=== PATIENT | male | born 1995 | race Caucasian/White ===

== ENCOUNTER 2020-01-19 16:49 | Emergency (ER) | payer OTHER ==
[2020-01-19] MEDS ORDERED: Lidocaine/EPINEPHrine/Tetracaine Soln 5 ML Each TOP ONE (17:30)
--- NOTE | 2020-01-19 17:57 | EDM.PDOC ---
ED HPI GENERAL MEDICAL PROBLEM - General Chief Complaint: Laceration Stated Complaint: LACERATION LT MIDDLE FINGER Time Seen by Provider: 01/19/20 17:10 Source of Information: Reports: Patient History Limitations: Reports: No Limitations - History of Present Illness INITIAL COMMENTS - FREE TEXT/NARRATIVE: Patient presented to the ED because of a left hand injury. A 10 lb piece of metal landed on his left 3rd/4th finger. He sustained a shallow 1 cm laceration on the 4th finger and 2 cm laceration on the 3rd finger. he is able to extend and flex his finger without any difficulty - Related Data Home Meds: Home Meds Rosuvastatin [Crestor] 5 mg PO DAILY 01/19/20 [History] Past Medical History Cardiovascular History: Reports: High Cholesterol - Past Surgical History GI Surgical History: Reports: Appendectomy Social & Family History - Tobacco Use Smoking Status *Q: Never Smoker - Recreational Drug Use Recreational Drug Use: No ED ROS GENERAL - Review of Systems Review Of Systems: See Below Constitutional: Reports: No Symptoms HEENT: Reports: No Symptoms Respiratory: Reports: No Symptoms Cardiovascular: Reports: No Symptoms Endocrine: Reports: No Symptoms GI/Abdominal: Reports: No Symptoms Musculoskeletal: Reports: No Symptoms Skin: Reports: Wound Neurological: Reports: No Symptoms Psychiatric: Reports: No Symptoms ED EXAM, SKIN/RASH Exam: See Below Exam Limited By: No Limitations General Appearance: Alert, No Apparent Distress Ears: Normal External Exam, Normal Canal, Hearing Grossly Normal Nose: Normal Inspection, Normal Mucosa, No Blood Throat/Mouth: Normal Inspection, Normal Lips, Normal Teeth Head: Atraumatic, Normocephalic Neck: Normal Inspection, Supple, Non-Tender, Full Range of Motion Respiratory/Chest: No Respiratory Distress, Lungs Clear, Normal Breath Sounds Cardiovascular: Normal Peripheral Pulses, Regular Rate, Rhythm, No Edema, No Gallop, No JVD, No Murmur GI/Abdominal: Normal Bowel Sounds, Soft, Non-Tender, No Organomegaly, No Distention Back Exam: Normal Inspection Extremities: Normal Inspection, Normal Range of Motion Neurological: Oriented, CN II-XII Intact Skin: Warm, Intact, Other (see laceration size and location) ED SKIN PROCEDURES - Laceration/Wound Repair Left Upper Digit - 3rd (Middle) Appearance: Clean Anesthetic Type: Topical Local Anesthesia - Lidocaine (Xylocaine): Other (LET) Closed with: Sutures Lac/Wound length In cm: 2 Suture Size: 4-0 Course - Vital Signs Text/Narrative:: UTD with immunization see procedure Last Recorded V/S: Last Vital Signs Temp 36.9 C 01/19/20 17:06 Pulse 76 01/19/20 17:06 Resp 18 01/19/20 17:06 BP 146/82 H 01/19/20 17:06 Pulse Ox 100 01/19/20 17:06 - Orders/Labs/Meds Orders: Active Orders 24 hr Category Date Time Status Fingers Fourth Digit Lt F3 [CR] Stat Exams 01/19/20 17:22 Taken Meds: Medications Discontinued Medications Generic Name Dose Route Start Last Admin Trade Name Milagro PRN Reason Stop Dose Admin Lidocaine/Tetracaine 5 ml 01/19/20 17:30 Let Soln TOP 01/19/20 17:31 ONETIME ONE Departure - Departure Time of Disposition: 18:20 Disposition: Home, Self-Care 01 Condition: Good Clinical Impression: Finger laceration - Discharge Information Instructions: Laceration Care, Adult, [id number] Referrals: David Yadav PA [Primary Care Provider] - Forms: ED Department Discharge Additional Instructions: Please read discharge instructions on laceration or wound care You may take ibuprofen 800 mg with tylenol 1000 mg every 8 hours as needed for pain Removal of suture in 10 days Sepsis Event Note - Evaluation Sepsis Screening Result: No Definite Risk - Focused Exam Vital Signs: Vital Signs Temp Pulse Resp BP Pulse Ox 01/19/20 17:06 36.9 C 76 18 146/82 H 100 Date Exam was Performed: 01/19/20 Time Exam was Performed: 17:57 - My Orders Last 24 Hours: My Active Orders 01/19/20 17:22 Fingers Fourth Digit Lt F3 [CR] Stat - Assessment/Plan Last 24 Hours: My Active Orders 01/19/20 17:22 Fingers Fourth Digit Lt F3 [CR] Stat
== END 2020-01-19 18:37 | disposition home or self-care (01) ==
LOC: FB.ED 16:49
DX: S61.213A Laceration without foreign body of left middle finger without damage to nail, initial encounter (principal); Z79.899 Other long term (current) drug therapy; W26.9XXA Contact with unspecified sharp object(s), initial encounter
CPT/HCPCS: 12001; 73140; 99283; A9270

== ENCOUNTER 2022-10-25 23:02 | Emergency (ER) | payer BC, OTHER | END 2022-10-26 00:15 | disposition home or self-care (01) | LOC: FB.ED 23:02 | DX: R21 Rash and other nonspecific skin eruption (principal); E78.00 Pure hypercholesterolemia, unspecified | CPT/HCPCS: 99282 ==